=== PATIENT | female | born 1990 | race African-American/Black ===

== ENCOUNTER 2016-10-31 19:03 | Emergency (ER) | payer OTHER ==
[2016-10-31 20:03] VITALS: BP 127/74
[2016-10-31] MEDS ORDERED: IPRATROPIUM/ALBUTEROL 0.5-2.5 MG/3 ML AMPUL NEB ONE (20:54)
--- NOTE | 2016-10-31 20:57 | ER Document Report ---
ED Medical Screen (RME) - General Chief Complaint: Fever, body aches, abdominal pain Stated Complaint: FEVER Time Seen by Provider: 10/31/16 20:53 Mode of Arrival: Ambulatory Information source: Patient Notes: Pt is a 26 year old female who presents to the ER today for shortness of breath and fever that began last night. Patient states that it has been as high as 100.2F at home. She has body aches and feels fatigued. She also complains of some left lower abdominal pain that has been ongoing "for a while." TRAVEL OUTSIDE OF THE [place] IN LAST 30 DAYS: No - Related Data Allergies/Adverse Reactions: No Known Allergies Allergy (Verified 06/12/12 10:46) Past Medical History - General Information source: Patient Renal/ Medical History: Denies: Hx Peritoneal Dialysis Review of Systems - Review of Systems Constitutional: See HPI Respiratory: See HPI Gastrointestinal: See HPI Physical Exam - Vital signs Vitals: Temp Pulse Resp BP Pulse Ox 99.3 F 97 16 127/74 H 99 10/31/16 19:58 10/31/16 19:58 10/31/16 19:58 10/31/16 19:58 10/31/16 19:58 - Notes Notes: PHYSICAL EXAMINATION: GENERAL: Well-appearing and in no acute distress. hy LUNGS: CTAB and equal. No wheezes rales or rhonchi. HEART: Regular rate and rhythm without murmurs Course - Vital Signs Vital signs: Temp Pulse Resp BP Pulse Ox 99.3 F 97 16 127/74 H 99 10/31/16 19:58 10/31/16 19:58 10/31/16 19:58 10/31/16 19:58 10/31/16 19:58
[2016-10-31 21:32] LABS: APPEARANCE,URINE SLIGHTLY-CLOUDY; BILIRUBIN,URINE NEGATIVE (NEGATIVE); GLUCOSE, URINE NEGATIVE (NEGATIVE); KETONES,URINE 20 mg/dL (NEGATIVE); LEUKOCYTE ESTERASE,URINE SMALL (NEGATIVE); NITRITE,URINE NEGATIVE (NEGATIVE); PROTEIN,URINE NEGATIVE (NEGATIVE); URINE SPECIFIC GRAVITY 1.027; UROBILINOGEN,URINE NEGATIVE mg/dL (<2.0)
--- NOTE | 2016-10-31 23:31 | ER Document Report ---
ED General - General Chief Complaint: Fever, body aches, abdominal pain Stated Complaint: FEVER Time Seen by Provider: 10/31/16 20:53 Mode of Arrival: Ambulatory Notes: Patient is a 26-year-old female without past medical history who presents with 24 hours of a "fever" required maximally at 100.2 at home, body aches and feeling of generalized fatigue. Denies any associated cough with impression, sore throat, headache, neck pain, vomiting or diarrhea. She knows that she is currently on her menstrual cycle. She is currently sexually active although states she regularly uses protection. No history of pelvic inflammatory disease. States that she has had left lower quadrant abdominal discomfort for "a long time" and that this is not a main reason for her visit to the emergency department today. She has not tried anything to relieve her symptoms and has not noted that eating seems to worsen her symptoms. She has not seen her primary care doctor regarding today's concern. TRAVEL OUTSIDE OF THE [place] IN LAST 30 DAYS: No - Related Data Allergies/Adverse Reactions: No Known Allergies Allergy (Verified 06/12/12 10:46) Past Medical History - General Information source: Patient - Social History Smoking Status: Never Smoker Frequency of alcohol use: None Drug Abuse: None Lives with: Spouse/Significant other Family History: Reviewed & Not Pertinent Renal/ Medical History: Denies: Hx Peritoneal Dialysis Past Surgical History: Reports: Hx Appendectomy, Hx Section Review of Systems - Review of Systems Notes: Constitutional: Positive for fever. HENT: Negative for sore throat. Eyes: Negative for visual changes. Cardiovascular: Negative for chest pain. Respiratory: Negative for shortness of breath. Gastrointestinal: Negative for abdominal pain, vomiting or diarrhea. Genitourinary: Negative for dysuria. Musculoskeletal: Negative for back pain. Skin: Negative for rash. Neurological: Negative for headaches, weakness or numbness. 10 point ROS negative except as marked above and in HPI. Physical Exam - Vital signs Vitals: Temp Pulse Resp BP Pulse Ox 99.3 F 97 16 127/74 H 99 10/31/16 19:58 10/31/16 19:58 10/31/16 19:58 10/31/16 19:58 10/31/16 19:58 Interpretation: Normal Notes: PHYSICAL EXAMINATION: GENERAL: Well-appearing, well-nourished and in no acute distress. HEAD: Atraumatic, normocephalic. EYES: Pupils equal round and reactive to light, extraocular movements intact, sclera anicteric, conjunctiva are normal. ENT: nares patent, oropharynx clear without exudates. Moist mucous membranes. NECK: Normal range of motion, supple without lymphadenopathy LUNGS: Breath sounds clear to auscultation bilaterally and equal. No wheezes rales or rhonchi. HEART: Regular rate and rhythm without murmurs ABDOMEN: Soft, nontender, normoactive bowel sounds. No guarding, no rebound. No masses appreciated. : Vaginal bleeding from cervical os. Thin, bernard mucus. No cervical motion tenderness or adnexal tenderness. EXTREMITIES: Normal range of motion, no pitting or edema. No cyanosis. NEUROLOGICAL: No focal neurological deficits. Moves all extremities spontaneously and on command. PSYCH: Normal mood, normal affect. SKIN: Warm, Dry, normal turgor, no rashes or lesions noted. Course - Re-evaluation Re-evalutation: 10/31/16 23:30 Patient presents with fever, intermittent cough and chronic left lower quadrant abdominal pain. She is very well in appearance on exam, vitals within normal limits, no obvious source of infection. Chest x-ray is clear, urinalysis negative. She is not . Given that she does have some lower abdominal tenderness in association with a reported fever at home will pursue with pelvic exam to evaluate for pelvic inflammatory disease. Otherwise I do not believe patient requires any further workup. Her clinical history is not consistent with acute pulmonary embolus, she has no pleuritic pain. She is PERC criteria negative. 11/01/16 00:11 Pelvic exam unremarkable without any significant discharge, cervical motion tenderness or adnexal tenderness. Patient continues to be well in appearance, vitals within normal limits. At this time I do not have an excellent for patient's reported fever although again today her vitals are within normal limits without evidence of fever. I have encouraged her to follow closely with her primary care doctor.At this time will discharge with return precautions and follow-up recommendations. Verbal discharge instructions given a the bedside and opportunity for questions given. Medication warnings reviewed. Patient is in agreement with this plan and has verbalized understanding of return precautions and the need for primary care follow-up in the next 24-72 hours. 11/01/16 03:11 Patient's chlamydia test has returned positive. Due to the time, we will have our a.m. follow-up nurse contact this patient for return to the emergency department for treatment. - Vital Signs Vital signs: Temp Pulse Resp BP Pulse Ox 99.3 F 97 16 127/74 H 99 10/31/16 19:58 10/31/16 19:58 10/31/16 19:58 10/31/16 19:58 10/31/16 19:58 - Laboratory Laboratory results interpreted by me: 10/31/16 11/01/16 21:05 00:00 Urine Ketones 20 H Urine Blood MODERATE H Ur Leukocyte Esterase SMALL H Chlamydia DNA (PCR) DETECTED H - Diagnostic Test Radiology reviewed: Image reviewed, Reports reviewed Radiology results interpreted by me: 11/01/16 00:11 Chest x-ray: No acute infiltrate or pneumothorax Discharge - Discharge Clinical Impression: Lower abdominal pain Fever Qualifiers: Fever type: unspecified Qualified Code(s): R50.9 - Fever, unspecified Condition: Good Disposition: HOME, SELF-CARE Additional Instructions: These return to emergency department if you have worsening of your symptoms, persistence of your fever of greater than 101F, pass out, or have any other symptoms that worsened to you. Follow-up with your primary care doctor in the next 1-2 days. Take Tylenol and ibuprofen as needed per box instructions for aches or fever
[2016-11-01 01:54] LABS: CHLAM PCR DETECTED (NOT DETECT)
== END 2016-11-01 00:24 | disposition home or self-care (01) ==
LOC: ER 19:03
DX: R10.32 Left lower quadrant pain (principal); R50.9 Fever, unspecified; M79.1 Myalgia; R53.83 Other fatigue; A74.9 Chlamydial infection, unspecified
CPT/HCPCS: 94640; 99284; 87210; 81025; 81001; 87491; 87591; 87804; 71020; J7620

== ENCOUNTER 2019-07-20 19:58 | Emergency (ER) | payer OTHER ==
--- NOTE | 2019-07-20 20:42 | ER Document Report ---
ED Medical Screen (RME) - General Chief Complaint: Cough Stated Complaint: CHEST TIGHTNESS,COUGH,SHORTNESS OF BREATH Time Seen by Provider: 07/20/19 20:38 Mode of Arrival: Ambulatory Information source: Patient Notes: Patient presents emergency department with complaints of cough for the past 2 days. Reports it hurts when she takes a deep breath. Denies fever vomiting diarrhea. Patient did receive her flu vaccine. Respiratory rate even unlabored. I have greeted and performed a rapid initial assessment of this patient. A comprehensive ED assessment and evaluation of the patient, analysis of test results and completion of the medical decision making process will be conducted by additional ED providers. TRAVEL OUTSIDE OF THE [place] IN LAST 30 DAYS: No - Related Data Allergies/Adverse Reactions: No Known Allergies Allergy (Verified 07/20/19 20:36) Past Medical History - Social History Frequency of alcohol use: None Drug Abuse: None Renal/ Medical History: Denies: Hx Peritoneal Dialysis Past Surgical History: Reports: Hx Appendectomy, Hx Section Physical Exam - Vital signs Vitals: Temp Pulse Resp BP Pulse Ox 99.0 F 67 18 152/80 H 100 07/20/19 20:27 07/20/19 20:27 07/20/19 20:27 07/20/19 20:27 07/20/19 20:27 Course - Vital Signs Vital signs: Temp Pulse Resp BP Pulse Ox 99.0 F 67 18 152/80 H 100 07/20/19 20:27 07/20/19 20:27 07/20/19 20:27 07/20/19 20:27 07/20/19 20:27
--- NOTE | 2019-07-20 21:20 | RADIOLOGY REPORT (SQ) ---
EXAM DESCRIPTION: XR CHEST 2 VIEWS COMPLETED DATE/TME: 07/20/2019 20:41 CLINICAL HISTORY: 29 years, Female, cough hurts with deep breath COMPARISON: None. NUMBER OF VIEWS: Two TECHNIQUE: Frontal and lateral radiograph of the chest were acquired LIMITATIONS: None. FINDINGS: Cardiac and mediastinal contours are normal in appearance. Lungs are clear. No pleural effusion or pneumothorax. IMPRESSION: No acute disease. copyright 2010 [employer]- All Rights Reserved
--- NOTE | 2019-07-20 23:41 | EKG REPORT ---
SEVERITY:- OTHERWISE NORMAL ECG - SINUS ARRHYTHMIA, RATE 58-80 : Confirmed by: Saul Cruz 20-Jul-2019 23:41:26
[2019-07-21] MEDS ORDERED: DEXAMETHASONE SOD PHOS INJ 10 MG/1 ML VIAL IM ONE (00:46)
--- NOTE | 2019-07-21 00:49 | ER Document Report ---
HPI - HPI Time Seen by Provider: 07/20/19 20:38 Pain Level: 3 Context: Patient is a 29-year-old female that comes emergency department for chief complaint of cough, pain across her chest when she takes a deep breath or coughs, and generally feeling rundown. She denies fever, denies significant congestion, denies vomiting or diarrhea. She has not had the influenza vaccine. She denies smoking, asthma, , day medications, or any diagnosed past medical history. - EENT EENT: DENIES: Sore Throat, Ear Pain, Eye problems - NEURO Neurology: REPORTS: Headache - CARDIOVASCULAR Cardiovascular: REPORTS: Chest pain - RESPIRATORY Respiratory: REPORTS: Coughing. DENIES: Trouble Breathing - GASTROINTESTINAL Gastrointestinal: DENIES: Abdominal Pain, Black / Bloody Stools - URINARY Urinary: DENIES: Dysuria, Urgency, Frequency - REPRODUCTIVE Reproductive: DENIES: : Past Medical History - General Information source: Patient - Social History Smoking Status: Never Smoker Frequency of alcohol use: None Drug Abuse: None Lives with: Family Family History: Reviewed & Not Pertinent Patient has suicidal ideation: No Patient has homicidal ideation: No Renal/ Medical History: Denies: Hx Peritoneal Dialysis Past Surgical History: Reports: Hx Appendectomy, Hx Section - Immunizations Immunizations up to date: Yes Hx Diphtheria, Pertussis, Tetanus Vaccination: Yes Vertical Provider Document - CONSTITUTIONAL General Appearance: WD/WN, No Apparent Distress - INFECTION CONTROL TRAVEL OUTSIDE OF THE [place] IN LAST 30 DAYS: No - HEENT HEENT: Atraumatic, Normal ENT Exam, Normocephalic - NECK Neck: Normal Inspection. negative: Lymphadenopathy-Left, Lymphadenopathy-Right - RESPIRATORY Respiratory: Breath Sounds Normal, No Respiratory Distress. negative: Chest Non-Tender - There is very mild generalized tenderness of the anterior chest wall. Clear lungs, no respiratory distress or tachypnea, unremarkable otherwise - CARDIOVASCULAR Cardiovascular: Regular Rate, Regular Rhythm - GI/ABDOMEN Gastrointestinal: Abdomen Soft, Abdomen Non-Tender - BACK Back: Normal Inspection - MUSCULOSKELETAL/EXTREMETIES Musculoskeletal/Extremeties: MAEW, FROM, Non-Tender - NEURO Level of Consciousness: Awake, Alert, Appropriate Motor/Sensory: No Motor Deficit, No Sensory Deficit - DERM Integumentary: Warm, Dry, No Rash Course - Re-evaluation Re-evalutation: Patient is well-appearing with an occasional congested cough and pain over her anterior chest wall. Unremarkable vital signs other than high blood pressure which was significantly improved on recheck. No hypoxia, tachycardia, fever, or tachypnea. Clear lungs. Negative chest x-ray and unremarkable EKG. Discussed with patient. Patient was treated with dexamethasone for chest wall pain/costochondritis/upper respiratory infection, provided with symptom management at home, discussed follow-up and return precautions. Patient states understanding and agreement. - Vital Signs Vital signs: Temp Pulse Resp BP Pulse Ox 99.0 F 67 18 152/80 H 100 07/20/19 20:27 07/20/19 20:27 07/20/19 20:27 07/20/19 20:27 07/20/19 20:27 - EKG Interpretation by Me Additional EKG results interpreted by me: EKG shows sinus arrhythmia at a rate of 67, normal axis, no T wave inversions or ST segment changes in consecutive leads, QTC of 418 Discharge - Discharge Clinical Impression: Cough, Chest wall pain Condition: Stable Disposition: HOME, SELF-CARE Additional Instructions: Your EKG and chest x-ray do not show any concerning findings. Your evaluation is consistent with an upper respiratory infection, this appears to be viral. This should resolve with time. The costochondritis (pain between your ribs) gradually resolved with time as well. You have been medicated to help reduce your symptoms, I also recommend the anti-inflammatory and chest decongestant as prescribed. Drink plenty of fluids, you can take additional [id number] medications if needed. Follow-up with primary care. Return if you worsen including spiking fever, difficulty breathing, or any other concerning or worsening symptoms. Prescriptions: Guaifenesin [Mucinex] 1,200 mg PO Q12 PRN #30 tab.er.12h PRN Reason: Naproxen 500 mg PO BID PRN #20 tablet PRN Reason: Forms: Return to Work
[2019-07-21 01:04] VITALS: BP 134/91
== END 2019-07-21 01:14 | disposition home or self-care (01) ==
LOC: ER 19:58
DX: R05 Cough (principal); R07.89 Other chest pain; R51 Headache
CPT/HCPCS: 93005; 99283; 96372; 71046; 93010; J1100